=== PATIENT | male | born 1975 | race Caucasian/White ===

== ENCOUNTER 2023-05-30 07:46 | Day surgery (SDC) | payer BC ==
[2023-05-29 12:06] VITALS: BMI 34.1
[2023-05-30] MEDS ORDERED: BUPIVACAINE HCL/EPINEPHRINE/PF 30 ML VIAL IJ ONE (09:18)
[2023-05-30] MEDS ORDERED: BUPIVACAINE HCL/PF 0.25% (2.5MG/ML) 10 ML VIAL ONE (09:21)
[2023-05-30] MEDS ORDERED: MIDAZOLAM HCL 2 MG/2 ML SINGLE DOSE VIAL ONE (09:48)
[2023-05-30] MEDS ORDERED: PROPOFOL 40 ML ONE (09:49)
[2023-05-30] MEDS ORDERED: SUCCINYLCHOLINE CHLORIDE 200 MG/10 ML SYRINGE ONE (09:49)
[2023-05-30] MEDS ORDERED: LIDOCAINE HCL/PF 2% SDV 5ML VIAL ONE (09:50)
[2023-05-30] MEDS ORDERED: SEVOFLURANE 250 ML BTL ONE (09:52)
[2023-05-30] MEDS ORDERED: HYDROmorphone HCL/PF 1 MG/ML VIAL ONE ×2 (10:11→11:11)
[2023-05-30] MEDS ORDERED: PROPOFOL 20 ML ONE ×2 (10:13→10:54)
[2023-05-30] MEDS ORDERED: LIDOCAINE HCL 1%, 10 MG/ML (20ML VIAL) ONE (10:29)
[2023-05-30] MEDS: HYDROmorphone HCL/PF 1 MG/ML VIAL IVPUSH PRN ×2 (11:11→11:30)
[2023-05-30] MEDS ORDERED: oxyCODONE HCL 5 MG TABLET PO PRN ×2 (11:11)
[2023-05-30] MEDS ORDERED: ONDANSETRON 4 MG/2 ML VIAL IVPUSH PRN (11:11)
[2023-05-30] MEDS ORDERED: LACTATED RINGERS SOLUTION 1,000 ML IV SCH (11:15)
[2023-05-30] MEDS ORDERED: oxyCODONE HCL 5 MG TABLET ONE ×2 (11:51→12:21)
[2023-05-30 12:32] VITALS: RESP 16; TEMP 98.3
[2023-05-30 13:29] VITALS: BP 150/93; PULSE 116
== END 2023-05-30 13:20 | disposition home or self-care (01) ==
LOC: FASU 07:46
PROVIDERS: ATTEND Orthopaedic Surgery
PROC: 0YQ Anatomical Regions, Lower Extremities, Repair (ICD-10-PCS; principal; 2023-05-30 10:21)
DX: S46.122A Laceration of muscle, fascia and tendon of long head of biceps, left arm, initial encounter (principal); X58.XXXA Exposure to other specified factors, initial encounter; Y93.9 Activity, unspecified; Y92.9 Unspecified place or not applicable
CPT/HCPCS: 88304-TC; 94760; C1713